=== PATIENT | female | born 1965 | race Hispanic/Latino ===

== ENCOUNTER 2019-10-12 15:52 | Emergency (ER) | payer OTHER ==
[2019-10-12 16:26] VITALS: BP 147/83
--- NOTE | 2019-10-12 16:40 | Event Note ---
ED Screening Note Date of service: 10/12/19 Time: 16:34 ED Screening Note: 53-year-old female presents the ED status post being hit by a forklift earlier today that pushed her 5 foot. She denies any loss of consciousness. Patient is complaining of headache, body aches, slight blurred vision, knee pain from abrasion This initial assessment/diagnostic orders/clinical plan/treatment(s) is/are subject to change based on patients health status, clinical progression and re- assessment by fellow clinical providers in the ED. Further treatment and workup at subsequent clinical providers discretion. Patient/guardian urged not to elope from the ED as their condition may be serious if not clinically assessed and managed. Initial orders include: right ankle, left knee and left elbow pain
--- NOTE | 2019-10-12 17:14 | XRay Report ---
HISTORY:MAIN: pain, contusion; Pain both knees, Lt shoulder, Rt ankle and both heels. Pain was struc k by a forklift and knocked to the ground. No LOC. Pain 01/12 COMPARISON: None. TECHNIQUE: AP and lateral views were obtained FINDINGS: Bones: No fracture or dislocation. Joint spaces: Maintained. Soft tissues: No significant abnormality. Additional findings: None. IMPRESSION: 1. No significant abnormality. Signer Name: Jaleel Helton MD Signed: 10/12/2019 5:09 PM Workstation Name: [id number]
--- NOTE | 2019-10-12 17:15 | XRay Report ---
HISTORY:MAIN: pain; Pain both knees, Lt shoulder, Rt ankle and both heels. Pain was struck by a fork lift and knocked to the ground. No LOC. Pain 01/12 COMPARISON: None. TECHNIQUE: AP and lateral views were obtained FINDINGS: Bones: No fracture or dislocation. Joint spaces: Maintained. Soft tissues: No significant abnormality. Additional findings: None. IMPRESSION: 1. No significant abnormality. Signer Name: Jaleel Helton MD Signed: 10/12/2019 5:10 PM Workstation Name: [id number]
--- NOTE | 2019-10-12 17:44 | XRay Report ---
LEFT KNEE 2 VIEWS INDICATION / CLINICAL INFORMATION: Left knee abrasion/pain. COMPARISON: None available. FINDINGS: BONES / JOINT(S): The joint spaces are well-maintained. There is no evidence of fracture, subluxation or joint effusion. SOFT TISSUES: No significant abnormality. ADDITIONAL FINDINGS: None. IMPRESSION: No acute abnormality. Signer Name: Farrukh Mata MD Signed: 10/12/2019 5:40 PM Workstation Name: [id number]
[2019-10-12] MEDS ORDERED: HYDROcodone/ACETAMINOPHEN 5-325 MG TAB PO ONE (18:32)
[2019-10-12] MEDS ORDERED: DIPHtheria,PERTUSSIS(ACELL),TETANUS VACCINE/PF 0.5 ML VIAL IM ONE (18:32)
--- NOTE | 2019-10-12 18:50 | Emergency Department Report ---
ED Fall HPI - General Chief Complaint: Extremity Injury, Lower Stated Complaint: HIT BY FORKLIFT Time Seen by Provider: 10/12/19 17:03 Source: patient Mode of arrival: Wheelchair - History of Present Illness Initial Comments: Patient is a 53-year-old female presents emergency room with complaints of an injury that occurred at work just prior to arrival. She states that a forklift was driving in front of her and had crates stacked on top of it and it accidentally hit her which pushed her backwards and she fell onto the ground. The forklift did not run over her directly. She is complaining of left knee pain, left elbow pain, right ankle pain. She states that the right ankle bothers her the most. She states that she has not attempted to ambulate since the incident. She denies any loss of consciousness, headache, numbness, weakness, bowel or bladder incontinence, any other injury. She has a past medical history of diabetes. She states she has an allergy to Ceclor. - Related Data Previous Rx's Medication Instructions Recorded Last Taken Type Ibuprofen [Motrin 600 MG tab] 600 mg PO Q8H PRN #14 tablet 10/12/19 Unknown Rx traMADoL [Ultram 50 MG tab] 50 mg PO Q6HR PRN #10 tablet 10/12/19 Unknown Rx Allergies Allergy/AdvReac Type Severity Reaction Status Date / Time cefaclor [From Ceclor] Allergy Rash Verified 10/12/19 16:26 ED Review of Systems ROS: Stated complaint: HIT BY FORKLIFT Other details as noted in HPI Comment: All other systems reviewed and negative ED Past Medical Hx - Past Medical History Previous Medical History?: Yes Hx Hypertension: Yes Hx Diabetes: Yes (IDDM - Insulin pump) - Surgical History Past Surgical History?: No - Social History Smoking Status: Never Smoker Substance Use Type: None - Medications Home Medications: Home Medications Medication Instructions Recorded Confirmed Last Taken Type Ibuprofen [Motrin 600 MG tab] 600 mg PO Q8H PRN #14 tablet 10/12/19 Unknown Rx traMADoL [Ultram 50 MG tab] 50 mg PO Q6HR PRN #10 tablet 10/12/19 Unknown Rx ED Physical Exam - General Limitations: No Limitations General appearance: alert, in no apparent distress - Head Head exam: Present: atraumatic, normocephalic - Eye Eye exam: Present: normal appearance, EOMI. Absent: periorbital swelling, periorbital tenderness - ENT ENT exam: Present: mucous membranes moist - Extremities Exam Extremities exam: Present: other (ttp to the right ankle, there is ecchymosis present to the right ankle, FROM of the right ankle with discomfort upon extension and internal rotation, no obvious joint laxity, abrasion present to the left knee, ttp the left knee, FROM of the left knee, no joint laxity, no deformity, ecchymosis and ttp to the left elbow, FROM of the left elbow, pt is neurovascularly intact ) - Neurological Exam Neurological exam: Present: alert, oriented X3 - Psychiatric Psychiatric exam: Present: normal affect, normal mood - Skin Skin exam: Present: warm, dry ED Course Vital Signs 10/12/19 10/12/19 16:24 16:33 Temperature 98.5 F 98.5 F Pulse Rate 107 H 101 H Respiratory 20 18 Rate Blood Pressure 147/83 Blood Pressure 147/83 [Right] O2 Sat by Pulse 99 99 Oximetry ED Medical Decision Making - Radiology Data Radiology results: report reviewed LEFT KNEE 2 VIEWS INDICATION / CLINICAL INFORMATION: Left knee abrasion/pain. COMPARISON: None available. FINDINGS: BONES / JOINT(S): The joint spaces are well-maintained. There is no evidence of fracture, subluxation or joint effusion. SOFT TISSUES: No significant abnormality. ADDITIONAL FINDINGS: None. IMPRESSION: No acute abnormality. Signer Name: Rodríguez Mata MD Signed: 10/12/2019 5:40 PM Workstation Name: [id number] Transcribed By: Dictated By: Rodríguez Mata MD Electronically Authenticated By: Rodríguez Mata MD Signed Date/Time: 10/12/191739 DD/ 38 TD/TT: HISTORY:MAIN: pain, contusion; Pain both knees, Lt shoulder, Rt ankle and both heels. Pain was struck by a forklift and knocked to the ground. No LOC. Pain 01/12 COMPARISON: None. TECHNIQUE: AP and lateral views were obtained FINDINGS: Bones: No fracture or dislocation. Joint spaces: Maintained. Soft tissues: No significant abnormality. Additional findings: None. IMPRESSION: 1. No significant abnormality. Signer Name: Jaleel Helton MD Signed: 10/12/2019 5:09 PM Workstation Name: [id number] Transcribed By: NATALY Dictated By: Jaleel Helton MD Electronically Authenticated By: Jaleel Helton MD Signed Date/Time: 10/12/191708 DD/ 08 TD/TT: HISTORY:MAIN: pain; Pain both knees, Lt shoulder, Rt ankle and both heels. Pain was struck by a forklift and knocked to the ground. No LOC. Pain 01/12 COMPARISON: None. TECHNIQUE: AP and lateral views were obtained FINDINGS: Bones: No fracture or dislocation. Joint spaces: Maintained. Soft tissues: No significant abnormality. Additional findings: None. IMPRESSION: 1. No significant abnormality. Signer Name: Jaleel Helton MD Signed: 10/12/2019 5:10 PM Workstation Name: [id number] Transcribed By: NATALY Dictated By: Jaleel Helton MD Electronically Authenticated By: Jaleel Helton MD Signed Date/Time: 10/12/191709 DD/ 08 TD/TT: - Medical Decision Making Patient is a 53-year-old female presents emergency room with complaints of an injury that occurred at work just prior to arrival. She states that a forklift was driving in front of her and had crates stacked on top of it and it accidentally hit her which pushed her backwards and she fell onto the ground. The forklift did not run over her directly. She is complaining of left knee pain, left elbow pain, right ankle pain. She states that the right ankle bothers her the most. She states that she has not attempted to ambulate since the incident. She denies any loss of consciousness, headache, numbness, weakness, bowel or bladder incontinence, any other injury. She has a past medical history of diabetes. She states she has an allergy to Ceclor. vitals with mild tachycardia likely secondary to discomfort otherwise stable. on exam: ttp to the right ankle, there is ecchymosis present to the right ankle, FROM of the right ankle with discomfort upon extension and internal rotation, no obvious joint laxity, abrasion present to the left knee, ttp the left knee, FROM of the left knee, no joint laxity, no deformity, ecchymosis and ttp to the left elbow, FROM of the left elbow, pt is neurovascularly intact. X-ray left knee, left elbow, right ankle with no acute significant abnormality. Discussed all results with patient. Patient given pain medication and tetanus immunization while in the ED as she did not drive. Patient given prescription for ibuprofen and tramadol. Advised patient Please take medication as prescribed. Do not drive or operate heavy machinery while taking pain medication. May use rest, ice, elevation. Follow-up with the orthopedic doctor if you do not have one there are a couple listed below. Return to emergency room for any new or worsening symptoms Critical care attestation.: If time is entered above; I have spent that time in minutes in the direct care of this critically ill patient, excluding procedure time. ED Disposition Clinical Impression: Left elbow pain, Abrasion, left knee, initial encounter Right ankle pain Qualifiers: Chronicity: acute Qualified Code(s): M25.571 - Pain in right ankle and joints of right foot Left knee pain Qualifiers: Chronicity: acute Qualified Code(s): M25.562 - Pain in left knee Disposition: TO HOME OR SELFCARE Is pt being admited?: No Does the pt Need Aspirin: No Condition: Stable Instructions: Arthralgia (ED), RICE Therapy (ED) Additional Instructions: Please take medication as prescribed. Do not drive or operate heavy machinery while taking pain medication. May use rest, ice, elevation. Follow-up with the orthopedic doctor if you do not have one there are a couple listed below. Return to emergency room for any new or worsening symptoms. Prescriptions: Ibuprofen [Motrin 600 MG tab] 600 mg PO Q8H PRN #14 tablet PRN Reason: Pain, Moderate (4-6) traMADoL [Ultram 50 MG tab] 50 mg PO Q6HR PRN #10 tablet PRN Reason: Pain , Severe (7-10) Referrals: RODRÍGUEZ GARCIA MD [Staff Physician] - 2-3 Days [facility] [Provider Group] - 2-3 Days Forms: Work/School Release Form(ED) Time of Disposition: 18:51 Print Language: SETSWANA
== END 2019-10-12 19:32 | disposition home or self-care (01) ==
LOC: ED 15:52
DX: S80.212A Abrasion, left knee, initial encounter (principal); S50.312A Abrasion of left elbow, initial encounter; M25.571 Pain in right ankle and joints of right foot; I10 Essential (primary) hypertension; E11.9 Type 2 diabetes mellitus without complications; Z79.1 Long term (current) use of non-steroidal anti-inflammatories (NSAID); Z79.899 Other long term (current) drug therapy; Z88.8 Allergy status to other drugs, medicaments and biological substances; W20.8XXA Other cause of strike by thrown, projected or falling object, initial encounter; Y93.89 Activity, other specified; Y92.89 Other specified places as the place of occurrence of the external cause; Y99.8 Other external cause status
CPT/HCPCS: 90471; 90715